=== PATIENT | female | born 1975 | race Caucasian/White ===

== ENCOUNTER 2025-05-21 09:04 | Outpatient (AMB) | payer MEDICAID, SELFPAY ==
--- NOTE | 2025-05-21 09:39 | ORTHONT_ITS ---
Vital signs 05/21/25 09:40 Height 1.68 m Height Method Stated Weight 103.674 kg Weight Measurement Method Standing Scale BMI 36.8 BP 138/84 H Blood Pressure Source Automatic Cuff Blood Pressure Location Left Upper Arm Position Sitting Respiration 18 Pulse 64 Pulse Source Monitor Temp 97.3 F Temp Source Temporal Artery Scan Pulse Oximetry (%) 98 Oxygen Delivery Method Room Air Med/Allergies Allergies & Medications Allergies Penicillins Allergy (Verified 05/21/25 09:41) Medication Reconciliation meloxicam 7.5 mg tablet 7.5 mg PO QDAY #45 tabs 05/21/25 [Rx] Exam Exam Patient is in no acute distress and is cooperative with the examination today. Breathing is nonlabored. In no respiratory distress. Patient has no paraspinal tenderness. Spinal deformity cannot be appreciated. The gait of the patient is nonantalgic Bilateral extremities were evaluated and demonstrates sensation intact to light touch. Palpable pedal pulses are present. No significant edema is present. Bilateral knees were examined and the patient has full strength and range of motion.. The right hip was examined. Patient was able to flex to 90 degrees, adduct to 30 degrees, abduct to 40 degrees, internally rotate to 10 degrees, and externally rotate to 20 degrees. Patient has a positive logroll The left hip was examined. Patient was able to flex to 90 degrees, adduct to 30 degrees, abduct to 40 degrees, internally rotate to 5 degrees, and externally rotate to 20 degrees. Patient has a positive logroll Assessment and Plan Problem List (1) Unilateral primary osteoarthritis, left hip: Status: Acute Plan: ASSESSMENT AND PLAN 1. Left Hip Arthritis: Bilateral hip pain is reported, with the left being worse than the right, starting about 6 months ago. Tramadol and an unidentified patch have been tried for pain relief, with limited success. An injection in the left hip provided temporary relief for about 2 months. Physical therapy sessions did not help. An x-ray of the left hip confirmed arthritis. A prescription for meloxicam has been issued to manage the arthritis. An x-ray of both hips will be conducted today to assess the condition further. If meloxicam is effective, it can be continued, and hip injections can be considered as needed. If these measures are ineffective, surgical intervention, specifically a hip replacement, may be considered. Weight loss is recommended to help reduce the progression of arthritis. 2. Right Hip Pain: Pain is also reported in the right hip, though it is less severe than the left. An x-ray of both hips will be conducted today to assess the condition further. 3. Weight Management: Weight loss injections have been used for less than a year, reducing weight from 265 lbs to 228 lbs. Continued weight loss is recommended to help manage arthritis. Follow-up: Follow up in 2 months. Office Procedures GNS Level of Care Nursing/Assessment Patient Status: Initial/New Patient Nursing Assessment/Reassesment: Medication Reconciliation, Update PMH in EMR and Vital Signs New Patient Charge New Patient Point Assignment: 1029 [place] Intake Visit Data Collection New Patient or Established: New Patient (never been to [facility]) Reason for Visit:: LEFT HIP PAIN Seen by Clinical Staff ONLY (RN/MA): No PCP or OBGYN visit in last 3 months: Yes Hx Now: No Do You Feel Safe at Home: Yes Authorities Contacted: N/A Questionairres Past Medical History Past Medical History Have you ever been diagnosed with any of the following: Respiratory Problems Smoking: No Smoking Cessation Counseling: No Smoking Exposure: No Subjective Visit Visit for: new patient and hip (LEFT HIP PAIN) Immunization / Flu Flu Vaccine in the Last 12 Months: No Flu Vaccine Exclusion Criteria: Refused by Patient History of Present Illness Chief complaint: LEFT HIP PAIN Date of injury / onset of symptoms: 6 MONTHS HISTORY OF PRESENT ILLNESS I, Jayant Lorenzo, have obtained verbal consent from the patient, to be recorded during this encounter which may include, but not limited to, medical history, examination, treatment plans, and relevant health information.? Patient was informed that recording will be read and reviewed by myself before inclusion in the medical chart. The patient is a pleasant 50-year-old female who presents today for evaluation of her left hip. She reports experiencing bilateral hip pain, with the left side being more severe than the right. This discomfort began approximately 6 months ago. She has no known medical conditions. She has undergone one injection in the left hip, which provided temporary relief. However, she recently started experiencing pain again, approximately 2 months post-injection. She also reports difficulty in performing tasks such as putting on socks and shoes due to the pain. She has not been prescribed any arthritis medications such as meloxicam or Celebrex. She has tried tramadol for pain management, but it has not been significantly effective. She also uses a patch, the name of which she does not recall, that provides some relief. She has had an x-ray and MRI of her left hip, which revealed arthritis. She has completed four physical therapy sessions, which unfortunately did not alleviate her symptoms. Additionally, she has a long-standing history of back issues, which have progressively worsened over time. She experiences significant groin pain, more so on the left side than the right. Her pain management regimen includes tramadol and patches. She has been receiving weight loss injections for less than a year, which have been beneficial. Her weight has decreased from 265 pounds to 228 pounds, and she continues to lose weight. Personal History Occupation: [employer] Pain Pain level (0-10): 9 Pain duration: WITH RESTING Pain location: outside (lateral) and posterior Pain quality: dull and aching Pain timing: increases with activity and stairs Associated signs & symptoms: none Ambulatory data Ambulatory device: none Treatments Number of previous injections: 1 Improvement with previous injections: Yes Number of Physical Therapy sessions: 4 Improvement with PT: No Improvement with NSAIDS: no Review of Systems Review of Systems: All systems negative unless otherwise noted in HPI.
[2025-05-21 09:40] VITALS: BP 138/84; PULSE 64; RESP 18; TEMP 36.3; O2SAT 98; BMI 36.8
--- NOTE | 2025-05-21 09:43 | XR_ITS ---
Examination: Bilateral hips, AP pelvis, 5 views Technique: AP, lateral views both hips, AP pelvis, 5 views Exam date and time: May 21, 2025, 0959 hours INDICATIONS: Bilateral hip pain beginning 1 year ago FINDINGS: Moderate osteopenia Moderate right hip osteoarthritis Advanced left hip osteoarthritis No right or left hip fracture or hip dislocation Bones of the pelvis intact IMPRESSION: Moderate right hip osteoarthritis Advanced left hip osteoarthritis
== END 2025-05-21 09:45 | disposition home or self-care (01) ==
PROVIDERS: Supervising Provider Orthopaedic Surgery Adult Reconstructive Orthopaedic Surgery; Visit Provider Orthopaedic Surgery Adult Reconstructive Orthopaedic Surgery
DX: M25.552 Pain in left hip (principal); M25.551 Pain in right hip; M16.0 Bilateral primary osteoarthritis of hip
CPT/HCPCS: 73522; 99213; G0463